=== PATIENT | female | born 1930 | race Caucasian/White ===

== ENCOUNTER 2018-05-10 14:56 | Observation (INO) | payer MEDICARE, BC ==
[~2018-05-10] VITALS: Ht 152.4 cm; Wt 68.9 kg
[2018-05-10 16:09] LABS: BASO # 0.1 x10^3/uL (0.0-0.2); BASO % 1 % (0-3); EOS # 0.1 x10^3/uL (0.0-0.7); EOS % 1 % (0-3); HEMATOCRIT 36.2 % (36.0-47.0); HEMOGLOBIN 12.3 g/dL (12.0-15.5); LYMPH # 3.7 x10^3/uL (1.0-4.8); LYMPH % 44 % (24-48); MEAN CORPUSCULAR HEMOGLOBIN 33 pg (25-35); MEAN CORPUSCULAR HGB CONC 34 g/dL (31-37); MEAN CORPUSCULAR VOLUME 96 fL (79-100); MONO # 0.9 x10^3/uL (0.0-1.1); MONO % 11 % (0-9); NEUT # 3.7 x10^3uL (1.8-7.7); NEUT % 44 % (31-73); PLATELET COUNT 273 x10^3/uL (140-400); RED BLOOD COUNT 3.76 x10^6/uL (3.50-5.40); RED CELL DISTRIBUTION WIDTH 13.1 % (11.5-14.5); WHITE BLOOD COUNT 8.5 x10^3/uL (4.0-11.0)
[2018-05-10 16:18] LABS: CALCIUM 9.4 mg/dL (8.5-10.1); CREATININE 0.9 mg/dL (0.6-1.0); GFR 59.1; POTASSIUM 4.2 mmol/L (3.5-5.1)
[2018-05-10 16:24] LABS: ALBUMIN 3.8 g/dL (3.4-5.0); ALBUMIN/GLOBULIN RATIO 1.2 (1.0-1.7); TOTAL BILIRUBIN 0.3 mg/dL (0.2-1.0); TOTAL PROTEIN 6.9 g/dL (6.4-8.2)
[2018-05-10] MEDS ORDERED: IV NORMAL SALINE 500ML BAG 500 ML IV ONE (16:30)
--- NOTE | 2018-05-10 16:46 | RAD ---
PQRS Compliance statement: One or more of the following individualized dose reduction techniques were utilized for this examination: 1. Automated exposure control. 2. Adjustment of the mA and/or kV according to patient size. 3. Use of iterative reconstruction technique. Indication:fall, laceration to posterior head TECHNIQUE: CT head without IV contrast COMPARISON:None FINDINGS: No pathologic extra-axial or intra-axial fluid collection. Mild diffuse cerebral atrophy. The ventricles and basal cisterns are within normal limits. Confluent low-attenuation is seen in the periventricular and deep white matter. No acute intracranial bleed. No focal loss of cruz-white differentiation. Orbits within normal limits. Multiple daren are seen in the left high convexity and lateral scalp. No large scalp hematoma. No acute calvarial fractures. The paranasal sinuses and mastoid air cells are clear. IMPRESSION: 1. No acute intracranial bleed. 2. Moderate White matter changes likely secondary to chronic microvascular ischemic disease. 3. Left anterior high convexity and lateral scalp soft tissue laceration with small hematoma without underlying calvarial fractures. Indication:fall, laceration to posterior head TECHNIQUE: CT of the cervical spine without IV contrast with multiplanar reformats. COMPARISON:None FINDINGS: Cervical spine is in normal anatomic alignment. Atlantoaxial joint interval is preserved. No compression deformities. The facet joints are in normal anatomic alignment with mild multilevel facet arthropathy. No acute fractures. Noncontrast appearance of the neck soft tissues within normal limits. Emphysema in the visualized lung apices. IMPRESSION: No acute cervical spine fractures. Electronically signed by: Chun Lau DO (05/10/2018 4:42 PM) [facility]
[2018-05-10] MEDS ORDERED: ONDANSETRON PF 4 MG/2 ML VIAL. IV PRN (17:15)
[2018-05-10] MEDS ORDERED: MAG HYDROX/ALUMINUM HYD/SIMETH 30 ML ORAL.SUSP PO PRN (17:15)
[2018-05-10] MEDS ORDERED: ACETAMINOPHEN 325 MG TABLET. PO PRN (17:15)
[2018-05-10] MEDS ORDERED: oxyCODONE IR 5 MG TABLET PO PRN (17:15)
[2018-05-10] MEDS ORDERED: IBUPROFEN 400 MG TABLET. PO PRN (17:15)
[2018-05-10] MEDS ORDERED: CALCIUM CARBONATE 500 MG TAB.CHEW PO PRN (17:15)
[2018-05-10] MEDS ORDERED: PROCHLORPERAZINE 10 MG/2 ML VIAL. IV PRN (17:15)
[2018-05-10] MEDS ORDERED: TEMAZEPAM 7.5 MG CAPSULE PO PRN (17:15)
[2018-05-10] MEDS ORDERED: MORPHINE SULFATE 4 MG/ML VIAL. IV PRN (17:15)
[2018-05-10 17:25] LABS: BILIRUBIN,URINE NEGATIVE (NEG); CLARITY,URINE CLEAR; COLOR,URINE YELLOW; NITRITE,URINE NEGATIVE (NEG); PROTEIN,URINE NEGATIVE (NEG-TRACE); UROBILINOGEN,URINE 0.2 mg/dL (0.2 mg/dL)
[2018-05-10] MEDS ORDERED: CLINDAMYCIN 600MG PREMIX 50 ML IV ONE (17:30)
[2018-05-10 17:39] LABS: RBC,URINE 0 /HPF (0-2)
[2018-05-10 17:40] LABS: BACTERIA,URINE FEW /HPF (0-FEW); SQUAMOUS EPITHELIAL CELL,UR MANY /LPF
--- NOTE | 2018-05-10 17:50 | PHYS DOC ---
Past Medical History Past Medical History: GERD, High Cholesterol, Hypertension Past Surgical History: Cholecystectomy, Hysterectomy, Tonsillectomy Alcohol Use: None Drug Use: None Adult General Chief Complaint Chief Complaint: MECHANICAL FALL HPI HPI Patient is a 88 year old female who was brought in after a mechanical fall apparently she fell down and tripped over a grocery cart. She says that she did not lose consciousness she recalls the event she lives alone no chest pain no anticoagulation no neck pain no shortness of breath no fever no recent illnesses just this injury. She was bleeding profusely from a large scalp laceration. She just recently moved her from [facility] she is with her son who is at the bedside. Review of Systems Review of Systems Constitutional: Denies fever or chills [] Eyes: Denies change in visual acuity, redness, or eye pain [] HENT: Denies nasal congestion or sore throat [] Respiratory: Denies cough or shortness of breath [] Cardiovascular: No additional information not addressed in HPI [] GI: Denies abdominal pain, nausea, vomiting, bloody stools or diarrhea [] : Denies dysuria or hematuria [] Musculoskeletal: Denies back pain or joint pain [] All other systems were reviewed and found to be within normal limits, except as documented in this note. Current Medications Current Medications Current Medications Medications (Trade) Dose Ordered Sig/Patricia Start Time Stop Time Status Last Admin Dose Admin Sodium Chloride 500 ml @ 500 mls/hr 1X ONCE 05/10/18 16:30 05/10/18 17:29 DC 05/10/18 16:30 500 MLS/HR Allergies Allergies Allergies Coded Allergies Type Severity Reaction Last Updated Verified Sulfa (Sulfonamide Antibiotics) Allergy Severe 05/10/18 Yes amoxicillin Allergy Intermediate Rash 05/10/18 Yes clavulanic acid Allergy Intermediate Rash 05/10/18 Yes meperidine Allergy Intermediate Unknown 05/10/18 Yes Physical Exam Physical Exam Constitutional: Well developed, HENT: Normocephalic, there was a large probably 15 cm laceration of the left anterior scalp deep to the galea some active bleeding is noted. No step-off is identified. There is also a 3 cm laceration to the anterior portion of the ear just anterior to the tragus. In addition there is also an obvious auricular hematoma. No significant bony tenderness of the face or neck. Eyes: PERRLA, EOMI, conjunctiva normal, no discharge. [] Neck: Normal range of motion, no tenderness, supple, no stridor. [] Cardiovascular:Heart rate regular rhythm, Lungs & Thorax: Bilateral breath sounds clear to auscultation [] Abdomen: Bowel sounds normal, soft, no tenderness, no masses, no pulsatile masses. [] Skin: ] Back: No tenderness, no CVA tenderness. [] Extremities: No tenderness, no cyanosis, no clubbing, ROM intact, no edema. [] Neurologic: Alert and oriented X 3, normal motor function, normal sensory function, no focal deficits noted. [] Psychologic: Affect normal, judgement normal, mood normal. [] Current Patient Data Vital Signs Vital Signs Date Time Temp Pulse Resp B/P (MAP) Pulse Ox O2 Delivery O2 Flow Rate FiO2 05/10/18 15:12 98.2 76 18 194/79 (117) 95 Room Air 98.2 Lab Values Laboratory Tests Test 05/10/18 16:00 White Blood Count 8.5 x10^3/uL (4.0-11.0) Red Blood Count 3.76 x10^6/uL (3.50-5.40) Hemoglobin 12.3 g/dL (12.0-15.5) Hematocrit 36.2 % (36.0-47.0) Mean Corpuscular Volume 96 fL (79-100) Mean Corpuscular Hemoglobin 33 pg (25-35) Mean Corpuscular Hemoglobin Concent 34 g/dL (31-37) Red Cell Distribution Width 13.1 % (11.5-14.5) Platelet Count 273 x10^3/uL (140-400) Neutrophils (%) (Auto) 44 % (31-73) Lymphocytes (%) (Auto) 44 % (24-48) Monocytes (%) (Auto) 11 % (0-9) H Eosinophils (%) (Auto) 1 % (0-3) Basophils (%) (Auto) 1 % (0-3) Neutrophils # (Auto) 3.7 x10^3uL (1.8-7.7) Lymphocytes # (Auto) 3.7 x10^3/uL (1.0-4.8) Monocytes # (Auto) 0.9 x10^3/uL (0.0-1.1) Eosinophils # (Auto) 0.1 x10^3/uL (0.0-0.7) Basophils # (Auto) 0.1 x10^3/uL (0.0-0.2) Sodium Level 135 mmol/L (136-145) L Potassium Level 4.2 mmol/L (3.5-5.1) Chloride Level 99 mmol/L (98-107) Carbon Dioxide Level 28 mmol/L (21-32) Anion Gap 8 (6-14) Blood Urea Nitrogen 18 mg/dL (7-20) Creatinine 0.9 mg/dL (0.6-1.0) Estimated GFR (Cockcroft-Gault) 59.1 BUN/Creatinine Ratio 20 (6-20) Glucose Level 162 mg/dL (70-99) H Calcium Level 9.4 mg/dL (8.5-10.1) Total Bilirubin 0.3 mg/dL (0.2-1.0) Aspartate Amino Transferase (AST) 19 U/L (15-37) Alanine Aminotransferase (ALT) 23 U/L (14-59) Alkaline Phosphatase 77 U/L (46-116) Troponin I Quantitative < 0.017 ng/mL (0.000-0.055) Total Protein 6.9 g/dL (6.4-8.2) Albumin 3.8 g/dL (3.4-5.0) Albumin/Globulin Ratio 1.2 (1.0-1.7) Laboratory Tests 05/10/18 16:00 Laboratory Tests 05/10/18 16:00 EKG EKG [] Interpretation Time: EKG shows a normal sinus rhythm rate of 93 probably sinus I see P waves A. fib would be on the differential but sinus with PVC seems more likely. No STEMI seen interpreted by me time of encounter Radiology/Procedures Radiology/Procedures [] Impressions: FINDINGS: No pathologic extra-axial or intra-axial fluid collection. Mild diffuse cerebral atrophy. The ventricles and basal cisterns are within normal limits. Confluent low-attenuation is seen in the periventricular and deep white matter. No acute intracranial bleed. No focal loss of cruz-white differentiation. Orbits within normal limits. Multiple daren are seen in the left high convexity and lateral scalp. No large scalp hematoma. No acute calvarial fractures. The paranasal sinuses and mastoid air cells are clear. IMPRESSION: 1. No acute intracranial bleed. 2. Moderate White matter changes likely secondary to chronic microvascular ischemic disease. 3. Left anterior high convexity and lateral scalp soft tissue laceration with small hematoma without underlying calvarial fractures. Indication:fall, laceration to posterior head TECHNIQUE: CT of the cervical spine without IV contrast with multiplanar reformats. COMPARISON:None FINDINGS: Cervical spine is in normal anatomic alignment. Atlantoaxial joint interval is preserved. No compression deformities. The facet joints are in normal anatomic alignment with mild multilevel facet arthropathy. No acute fractures. Noncontrast appearance of the neck soft tissues within normal limits. Emphysema in the visualized lung apices. IMPRESSION: No acute cervical spine fractures. Electronically signed by: Chun Lau DO (05/10/2018 4:42 PM) [facility] DICTATED and SIGNED BY: CHUN LAU DO DATE: 05/10/18 1635 Course & Med Decision Making Course & Med Decision Making Pertinent Labs and Imaging studies reviewed. (See chart for details) []88-year-old female after mechanical fall sustained a large scalp laceration and a reticular hematoma. She lives alone a 60 emergency room workup was negative acute. I think it was a mechanical fall but I think we should watch her overnight to make sure there is no further bleeding and that she does not hit her head again. Spoke with Dr. elvis CARMONA for admission. Laceration repair: Verbal consent obtained scalp laceration 15 cm wound was irrigated profusely no foreign body was identified lidocaine with EPI. TETANUS UP TO DATE. Closed with 17 daren with good skin approximation. Laceration repair #2: Verbal consent was obtained anterior ear laceration approximately 3 cm no foreign body was seen it was irrigated profusely lidocaine for anesthesia closed with 6-0 nylon simple interrupted sutures excellent skin approximation patient tolerated well. Incision and drainage: Verbal consent was obtained. Drainage or reticular hematoma the area was prepped and draped in the usual sterile fashion small amount of subcutaneous lidocaine was used a 0.5 cm incision was made just inferior to the cartilage of the superior portion of the hematoma a large amount of bright red blood was drained I made sure to re-create as best as possible the original anatomic shape of the cartilage and pinna. I then placed a pressure dressing including Xeroform anterior and posterior to the pinna followed by a pressure dressing around the whole head. I also instructed family and the patient and the importance of a follow-up examination for this AURICULAR hematoma it likely may need to be reevaluated AND/OR re-drained in the next 48 hours. They know to follow-up with an ENT doctor here in town and if not come back to the ER for reevaluation. Sutures and daren should be out, 5 days on the face in approximately 7-10 days on the scalp. Discussed with GRETTA ADMIT FOR OBSERVATION Prophylactic antibodies were given due to the size of the laceration. Dragon Disclaimer Dragon Disclaimer This electronic medical record was generated, in whole or in part, using a voice recognition dictation system. Departure Departure Impression: Primary Impression: Scalp laceration Disposition: ADMITTED INPATIENT Admitting Physician: Meg Milian Condition: STABLE Referrals: UNKNOWN PCP NAME (PCP) SUZETTE GRAVES MD May 10, 2018 17:50
[2018-05-10 18:00] VITALS: BP 187/99
[2018-05-10] MEDS ORDERED: AMLO5TAB7 PO (18:19)
[2018-05-10] MEDS ORDERED: OMEP20CA9 PO (18:19)
[2018-05-10] MEDS ORDERED: IRBE300T3 PO (18:19)
[2018-05-10] MEDS ORDERED: PRAV40TA2 PO (18:19)
[2018-05-10] MEDS ORDERED: METO-269 PO (18:19)
[2018-05-10] MEDS ORDERED: ANAS1TAB PO (18:19)
[2018-05-10 19:00] VITALS: BP 159/52
--- NOTE | 2018-05-10 19:39 | PDOC1 ---
History and Physical Date of Admission Date of Admission DATE: 05/10/18 TIME: 19:32 Identification/Chief Complaint Chief Complaint Fall at home and hit her head Source Source: Caregiver, Chart review, Patient History of Present Illness History of Present Illness 88-year-old female lives alone at home, son concern, had a mechanical fall today, no presyncopal symptoms. Sustained a pretty significant head laceration needed 18 daren in the emergency room and had some ear hematoma that was drained at the emergency room. CT head and cervical spine negative for any fracture just maybe some DJD. Blood pressure on the high side which was appropriately addressed. DNR. Patient looking fairly well, complains of some beginning headache. Otherwise, OBS admit and wants to go home tmr, She will see ENT MD on saturday to make sure ear hematoma will not re accumulate Past Medical History Cardiovascular: HTN Past Surgical History Past Surgical History: No pertinent history Family History Family History: Hypertension Social History Smoke: No ALCOHOL: none Drugs: None Current Medications Current Medications Current Medications Sodium Chloride 500 ml @ 500 mls/hr 1X ONCE IV Last administered on at 16:30; Start 05/10/18 at 16:30; Stop 05/10/18 at 17:29; Status DC Ondansetron HCl (Zofran) 4 mg PRN Q6HRS PRN IV NAUSEA/VOMITING; Start at 17:15 Prochlorperazine Edisylate (Compazine) 10 mg PRN Q6HRS PRN IV NAUSEA/VOMITING 2ND CHOICE; Start 05/10/18 at 17:15 Al Hydroxide/Mg Hydroxide (Mylanta Plus Xs) 30 ml PRN Q3HRS PRN PO HEARTBURN / GAS; Start 05/10/18 at 17:15 Calcium Carbonate/ Glycine (Tums) 500 mg PRN Q3HRS PRN PO UPSET STOMACH; Start 05/10/18 at 17:15 Morphine Sulfate (Morphine Sulfate) 1 mg PRN Q1HR PRN IV PAIN; Start 05/10/18 at 17:15 Oxycodone HCl (Roxicodone) 5 mg PRN Q4HRS PRN PO MODERATE-SEVERE PAIN; Start 05/10/18 at 17:15 Acetaminophen (Tylenol) 650 mg PRN Q6HRS PRN PO Headaches, Temp > 101.5F; Start 05/10/18 at 17:15 Ibuprofen (Motrin) 400 mg PRN Q6HRS PRN PO MILD PAIN; Start 05/10/18 at 17:15 Temazepam (Restoril) 7.5 mg PRN QHS PRN PO INSOMNIA; Start 05/10/18 at 17:15 Clindamycin Phosphate 50 ml @ 100 mls/hr Q8HRS IV ; Start 05/11/18 at 00:00 Clindamycin Phosphate 50 ml @ 100 mls/hr 1X ONCE IV Last administered on at 17:48; Start 05/10/18 at 17:30; Stop 05/10/18 at 17:59; Status DC Amlodipine Besylate (Norvasc) 5 mg DAILY PO ; Start 05/11/18 at 09:00 Anastrozole (Arimidex) 1 mg DAILY PO ; Start 05/11/18 at 09:00 Losartan Potassium (Cozaar) 100 mg DAILY PO ; Start 05/11/18 at 09:00 Metoprolol Succinate (Toprol Xl) 50 mg DAILY PO ; Start 05/11/18 at 09:00 Pantoprazole Sodium (Protonix) 40 mg DAILYAC PO ; Start 05/11/18 at 07:30 Atorvastatin Calcium (Lipitor) 10 mg QHS PO ; Start 05/10/18 at 21:00 Active Scripts Active Reported Amlodipine Besylate 5 Mg Tablet 5 Mg PO DAILY Irbesartan 300 Mg Tablet 1 Tab PO DAILY Toprol Xl (Metoprolol Succinate) 50 Mg Tab.er.24h 50 Mg PO DAILY Pravastatin Sodium 40 Mg Tablet 1 Tab PO DAILY Omeprazole 20 Mg Capsule.dr 1 Cap PO DAILY Anastrozole 1 Mg Tablet 1 Tab PO DAILY Allergies Allergies: Coded Allergies: Sulfa (Sulfonamide Antibiotics) (Verified Allergy, Severe, 05/10/18) "I WENT CRAZY" amoxicillin (Verified Allergy, Intermediate, Rash, 05/10/18) clavulanic acid (Verified Allergy, Intermediate, Rash, 05/10/18) meperidine (Verified Allergy, Unknown, Unknown, 05/10/18) ROS Review of System Beginning headache, otherwise rest of ROS 14 point negative Physical Exam General: Alert, Oriented X3, Cooperative, No acute distress HEENT: PERRLA, EOMI, Other (she has 18 daren, head bandage which is dry) Lungs: Clear to auscultation, Normal air movement Heart: S1S2, RRR, no thrills, no rubs, no gallops, no murmurs Cardiovascular: S1, S2 Breasts: Normal, Rt breast nml w/o mass, Lt breast nml w/o mass, Nipples normal Abdomen: Normal bowel sounds, Soft, No tenderness, No hepatosplenomegaly, No masses Rectal Exam: not examined PELVIC: Nml ext genitalia Extremities: No clubbing, No cyanosis, No edema, Normal pulses, No tenderness/ swelling Skin: No rashes, No breakdown, No significant lesion Neuro: Normal gait, Normal speech, Strength at 5/5 X4 ext, Normal tone, Sensation intact, Cranial nerves 3-12 NL, Reflexes 2+ Psych/Mental Status: Mental status NL, Mood NL Vitals Vitals Vital Signs Date Time Temp Pulse Resp B/P (MAP) Pulse Ox O2 Delivery O2 Flow Rate FiO2 05/10/18 18:00 97.9 88 20 187/99 (128) 95 Room Air 97.9 Labs Labs Laboratory Tests Test 05/10/18 16:00 05/10/18 17:17 White Blood Count 8.5 x10^3/uL (4.0-11.0) Red Blood Count 3.76 x10^6/uL (3.50-5.40) Hemoglobin 12.3 g/dL (12.0-15.5) Hematocrit 36.2 % (36.0-47.0) Mean Corpuscular Volume 96 fL (79-100) Mean Corpuscular Hemoglobin 33 pg (25-35) Mean Corpuscular Hemoglobin Concent 34 g/dL (31-37) Red Cell Distribution Width 13.1 % (11.5-14.5) Platelet Count 273 x10^3/uL (140-400) Neutrophils (%) (Auto) 44 % (31-73) Lymphocytes (%) (Auto) 44 % (24-48) Monocytes (%) (Auto) 11 % (0-9) Eosinophils (%) (Auto) 1 % (0-3) Basophils (%) (Auto) 1 % (0-3) Neutrophils # (Auto) 3.7 x10^3uL (1.8-7.7) Lymphocytes # (Auto) 3.7 x10^3/uL (1.0-4.8) Monocytes # (Auto) 0.9 x10^3/uL (0.0-1.1) Eosinophils # (Auto) 0.1 x10^3/uL (0.0-0.7) Basophils # (Auto) 0.1 x10^3/uL (0.0-0.2) Sodium Level 135 mmol/L (136-145) Potassium Level 4.2 mmol/L (3.5-5.1) Chloride Level 99 mmol/L (98-107) Carbon Dioxide Level 28 mmol/L (21-32) Anion Gap 8 (6-14) Blood Urea Nitrogen 18 mg/dL (7-20) Creatinine 0.9 mg/dL (0.6-1.0) Estimated GFR (Cockcroft-Gault) 59.1 BUN/Creatinine Ratio 20 (6-20) Glucose Level 162 mg/dL (70-99) Calcium Level 9.4 mg/dL (8.5-10.1) Total Bilirubin 0.3 mg/dL (0.2-1.0) Aspartate Amino Transf (AST/SGOT) 19 U/L (15-37) Alanine Aminotransferase (ALT/SGPT) 23 U/L (14-59) Alkaline Phosphatase 77 U/L (46-116) Troponin I Quantitative < 0.017 ng/mL (0.000-0.055) Total Protein 6.9 g/dL (6.4-8.2) Albumin 3.8 g/dL (3.4-5.0) Albumin/Globulin Ratio 1.2 (1.0-1.7) Urine Collection Type Unknown Urine Color Yellow Urine Clarity Clear Urine pH 6.0 Urine Specific [place] 1.015 Urine Protein Negative mg/dL (NEG-TRACE) Urine Glucose (UA) Negative mg/dL (NEG) Urine Ketones (Stick) Negative mg/dL (NEG) Urine Blood Negative (NEG) Urine Nitrite Negative (NEG) Urine Bilirubin Negative (NEG) Urine Urobilinogen Dipstick 0.2 mg/dL (0.2 mg/dL) Urine Leukocyte Esterase Moderate (NEG) Urine RBC 0 /HPF (0-2) Urine WBC 5-10 /HPF (0-4) Urine Squamous Epithelial Cells Many /LPF Urine Renal Epithelial Cells Few /LPF Urine Bacteria Few /HPF (0-FEW) Urine Mucus Marked /LPF Laboratory Tests Test 12/15/18 16:00 05/10/18 17:17 White Blood Count 8.5 x10^3/uL (4.0-11.0) Red Blood Count 3.76 x10^6/uL (3.50-5.40) Hemoglobin 12.3 g/dL (12.0-15.5) Hematocrit 36.2 % (36.0-47.0) Mean Corpuscular Volume 96 fL (79-100) Mean Corpuscular Hemoglobin 33 pg (25-35) Mean Corpuscular Hemoglobin Concent 34 g/dL (31-37) Red Cell Distribution Width 13.1 % (11.5-14.5) Platelet Count 273 x10^3/uL (140-400) Neutrophils (%) (Auto) 44 % (31-73) Lymphocytes (%) (Auto) 44 % (24-48) Monocytes (%) (Auto) 11 % (0-9) Eosinophils (%) (Auto) 1 % (0-3) Basophils (%) (Auto) 1 % (0-3) Neutrophils # (Auto) 3.7 x10^3uL (1.8-7.7) Lymphocytes # (Auto) 3.7 x10^3/uL (1.0-4.8) Monocytes # (Auto) 0.9 x10^3/uL (0.0-1.1) Eosinophils # (Auto) 0.1 x10^3/uL (0.0-0.7) Basophils # (Auto) 0.1 x10^3/uL (0.0-0.2) Sodium Level 135 mmol/L (136-145) Potassium Level 4.2 mmol/L (3.5-5.1) Chloride Level 99 mmol/L (98-107) Carbon Dioxide Level 28 mmol/L (21-32) Anion Gap 8 (6-14) Blood Urea Nitrogen 18 mg/dL (7-20) Creatinine 0.9 mg/dL (0.6-1.0) Estimated GFR (Cockcroft-Gault) 59.1 BUN/Creatinine Ratio 20 (6-20) Glucose Level 162 mg/dL (70-99) Calcium Level 9.4 mg/dL (8.5-10.1) Total Bilirubin 0.3 mg/dL (0.2-1.0) Aspartate Amino Transf (AST/SGOT) 19 U/L (15-37) Alanine Aminotransferase (ALT/SGPT) 23 U/L (14-59) Alkaline Phosphatase 77 U/L (46-116) Troponin I Quantitative < 0.017 ng/mL (0.000-0.055) Total Protein 6.9 g/dL (6.4-8.2) Albumin 3.8 g/dL (3.4-5.0) Albumin/Globulin Ratio 1.2 (1.0-1.7) Urine Collection Type Unknown Urine Color Yellow Urine Clarity Clear Urine pH 6.0 Urine Specific [place] 1.015 Urine Protein Negative mg/dL (NEG-TRACE) Urine Glucose (UA) Negative mg/dL (NEG) Urine Ketones (Stick) Negative mg/dL (NEG) Urine Blood Negative (NEG) Urine Nitrite Negative (NEG) Urine Bilirubin Negative (NEG) Urine Urobilinogen Dipstick 0.2 mg/dL (0.2 mg/dL) Urine Leukocyte Esterase Moderate (NEG) Urine RBC 0 /HPF (0-2) Urine WBC 5-10 /HPF (0-4) Urine Squamous Epithelial Cells Many /LPF Urine Renal Epithelial Cells Few /LPF Urine Bacteria Few /HPF (0-FEW) Urine Mucus Marked /LPF VTE Prophylaxis Ordered VTE Prophylaxis Devices: Yes VTE Pharmacological Prophylaxi: Yes Assessment/Plan Assessment/Plan Closed head injury Mechanical fall at home Scalp laceration, status post 18 sutures at the emergency room ear hematoma status post evacuation at the ER Geriatric DNR Fall risk PLAn: Observation status I have reconciled home meds, she would wish some [employer] or Lortab for the headache to help her sleep tonight Blood pressure meds have been reconciled and when necessary Pain control To see an ENT doctor Saturday to make sure air hematoma does not resolve Conesus can be removed in about 10-14 days? As per ER ERIK GLYNN MD May 10, 2018 19:38
--- NOTE | 2018-05-10 19:43 | EKG ---
[facility] [address] [place] [address] Test Date: 2018-05-10 Test Time: 16:07:11 Pat Name: PVAEL BOOKER Department: Room: 406 1 Gender: F [employer] Director: : 1930 Requested By: SUZETTE GRAVES Order Number: [id number] Reading MD: Eugenio Berkowitz MD Measurements Intervals [place] Rate: 93 P: 90 [place]: 230 QRS: 34 QRSD: 74 T: 28 QT: 380 QTc: 475 Interpretive Statements SINUS RHYTHM - PROBABLE VENTRICULAR PREMATURE COMPLEX(ES) ATRIAL PREMATURE COMPLEX(ES) PROLONGED [place] INTERVAL PROLONGED QT ABNORMAL ECG BASELINE ARTIFACT Electronically Signed On 05-12-2018 10:30:53 STAVE GRADER by Eugenio Berkowitz MD
[2018-05-10] MEDS ORDERED: HYDROcodone/APAP 5/325MG 1 TAB TABLET PO ONE (19:45)
[2018-05-10] MEDS ORDERED: HYDROcodone/APAP 5/325MG 1 TAB TABLET PO PRN (19:45)
[2018-05-10] MEDS ORDERED: ATORVASTATIN CALCIUM 10 MG TABLET. PO SCH (21:00)
[2018-05-10 22:58] VITALS: BP 148/53
[2018-05-10] MEDS: CLINDAMYCIN 600MG PREMIX 50 ML IV SCH (23:28)
[2018-05-11 03:00] VITALS: BP 158/55
[2018-05-11] MEDS: CLINDAMYCIN 600MG PREMIX 50 ML IV SCH ×2 (05:49→14:00)
[2018-05-11 07:00] VITALS: BP 150/40
[2018-05-11] MEDS ORDERED: PANTOPRAZOLE 40 MG TABLET.DR. PO SCH (07:30)
[2018-05-11] MEDS ORDERED: METOPROLOL SUCC 24HR ER 50 MG TAB.ER.24H. PO SCH (09:00)
[2018-05-11] MEDS ORDERED: LOSARTAN POTASSIUM 50 MG TABLET. PO SCH (09:00)
[2018-05-11] MEDS ORDERED: ANASTROZOLE 1 MG TABLET PO SCH (09:00)
[2018-05-11] MEDS ORDERED: amLODIPine BESYLATE 5 MG TABLET PO SCH (09:00)
--- NOTE | 2018-05-11 09:54 | PDOC ---
PROGRESS NOTES Chief Complaint Chief Complaint Closed head injury Mechanical fall at home Scalp laceration, status post 18 verito at the emergency room ear hematoma status post evacuation at the ER and posterior otic sutures Geriatric DNR Fall risk History of Present Illness History of Present Illness 88-year-old female lives alone at home, son concern, had a mechanical fall today, no presyncopal symptoms. Sustained a pretty significant head laceration needed 18 verito in the emergency room and had some ear hematoma that was drained at the emergency room. CT head and cervical spine negative for any fracture just maybe some DJD. Blood pressure on the high side which was appropriately addressed. DNR. No Overnight events. Patient looking fairly well, complains of some headache. Was OBS admit and wants to go home, She will see ENT MD on saturday to make sure ear hematoma will not re accumulate. Awaiting final PT evaluation CT head 1. No acute intracranial bleed. 2. Moderate White matter changes likely secondary to chronic microvascular ischemic disease. 3. Left anterior high convexity and lateral scalp soft tissue laceration with small hematoma without underlying calvarial fractures. Plan: Observation status Blood pressure meds have been reconciled and when necessary. Hold amlodipine and BRUNO, BB only today Pain control To see an ENT doctor Saturday to make sure air hematoma does not resolve Verito can be removed in about 10-14 days Awaiting final PT/OT evaluation Vitals Vitals Vital Signs Date Time Temp Pulse Resp B/P (MAP) Pulse Ox O2 Delivery O2 Flow Rate FiO2 05/11/18 07:00 97.7 75 18 150/40 (76) 91 Room Air 97.7 Physical Exam General: Alert, Oriented X3, Cooperative, No acute distress Abdomen: Normal bowel sounds, Soft, No tenderness, No hepatosplenomegaly, No masses Extremities: No clubbing, No cyanosis, No edema, Normal pulses, No tenderness/ swelling Skin: No rashes, No breakdown, No significant lesion Labs LABS Laboratory Tests Test 05/10/18 16:00 05/10/18 17:17 White Blood Count 8.5 x10^3/uL (4.0-11.0) Red Blood Count 3.76 x10^6/uL (3.50-5.40) Hemoglobin 12.3 g/dL (12.0-15.5) Hematocrit 36.2 % (36.0-47.0) Mean Corpuscular Volume 96 fL (79-100) Mean Corpuscular Hemoglobin 33 pg (25-35) Mean Corpuscular Hemoglobin Concent 34 g/dL (31-37) Red Cell Distribution Width 13.1 % (11.5-14.5) Platelet Count 273 x10^3/uL (140-400) Neutrophils (%) (Auto) 44 % (31-73) Lymphocytes (%) (Auto) 44 % (24-48) Monocytes (%) (Auto) 11 % (0-9) Eosinophils (%) (Auto) 1 % (0-3) Basophils (%) (Auto) 1 % (0-3) Neutrophils # (Auto) 3.7 x10^3uL (1.8-7.7) Lymphocytes # (Auto) 3.7 x10^3/uL (1.0-4.8) Monocytes # (Auto) 0.9 x10^3/uL (0.0-1.1) Eosinophils # (Auto) 0.1 x10^3/uL (0.0-0.7) Basophils # (Auto) 0.1 x10^3/uL (0.0-0.2) Sodium Level 135 mmol/L (136-145) Potassium Level 4.2 mmol/L (3.5-5.1) Chloride Level 99 mmol/L (98-107) Carbon Dioxide Level 28 mmol/L (21-32) Anion Gap 8 (6-14) Blood Urea Nitrogen 18 mg/dL (7-20) Creatinine 0.9 mg/dL (0.6-1.0) Estimated GFR (Cockcroft-Gault) 59.1 BUN/Creatinine Ratio 20 (6-20) Glucose Level 162 mg/dL (70-99) Calcium Level 9.4 mg/dL (8.5-10.1) Total Bilirubin 0.3 mg/dL (0.2-1.0) Aspartate Amino Transf (AST/SGOT) 19 U/L (15-37) Alanine Aminotransferase (ALT/SGPT) 23 U/L (14-59) Alkaline Phosphatase 77 U/L (46-116) Troponin I Quantitative < 0.017 ng/mL (0.000-0.055) Total Protein 6.9 g/dL (6.4-8.2) Albumin 3.8 g/dL (3.4-5.0) Albumin/Globulin Ratio 1.2 (1.0-1.7) Urine Collection Type Unknown Urine Color Yellow Urine Clarity Clear Urine pH 6.0 Urine Specific [place] 1.015 Urine Protein Negative mg/dL (NEG-TRACE) Urine Glucose (UA) Negative mg/dL (NEG) Urine Ketones (Stick) Negative mg/dL (NEG) Urine Blood Negative (NEG) Urine Nitrite Negative (NEG) Urine Bilirubin Negative (NEG) Urine Urobilinogen Dipstick 0.2 mg/dL (0.2 mg/dL) Urine Leukocyte Esterase Moderate (NEG) Urine RBC 0 /HPF (0-2) Urine WBC 5-10 /HPF (0-4) Urine Squamous Epithelial Cells Many /LPF Urine Renal Epithelial Cells Few /LPF Urine Bacteria Few /HPF (0-FEW) Urine Mucus Marked /LPF Comment Review of Relevant I have reviewed the following items meliton (where applicable) has been applied. Labs Laboratory Tests Test 05/10/18 16:00 05/10/18 17:17 White Blood Count 8.5 x10^3/uL (4.0-11.0) Red Blood Count 3.76 x10^6/uL (3.50-5.40) Hemoglobin 12.3 g/dL (12.0-15.5) Hematocrit 36.2 % (36.0-47.0) Mean Corpuscular Volume 96 fL (79-100) Mean Corpuscular Hemoglobin 33 pg (25-35) Mean Corpuscular Hemoglobin Concent 34 g/dL (31-37) Red Cell Distribution Width 13.1 % (11.5-14.5) Platelet Count 273 x10^3/uL (140-400) Neutrophils (%) (Auto) 44 % (31-73) Lymphocytes (%) (Auto) 44 % (24-48) Monocytes (%) (Auto) 11 % (0-9) Eosinophils (%) (Auto) 1 % (0-3) Basophils (%) (Auto) 1 % (0-3) Neutrophils # (Auto) 3.7 x10^3uL (1.8-7.7) Lymphocytes # (Auto) 3.7 x10^3/uL (1.0-4.8) Monocytes # (Auto) 0.9 x10^3/uL (0.0-1.1) Eosinophils # (Auto) 0.1 x10^3/uL (0.0-0.7) Basophils # (Auto) 0.1 x10^3/uL (0.0-0.2) Sodium Level 135 mmol/L (136-145) Potassium Level 4.2 mmol/L (3.5-5.1) Chloride Level 99 mmol/L (98-107) Carbon Dioxide Level 28 mmol/L (21-32) Anion Gap 8 (6-14) Blood Urea Nitrogen 18 mg/dL (7-20) Creatinine 0.9 mg/dL (0.6-1.0) Estimated GFR (Cockcroft-Gault) 59.1 BUN/Creatinine Ratio 20 (6-20) Glucose Level 162 mg/dL (70-99) Calcium Level 9.4 mg/dL (8.5-10.1) Total Bilirubin 0.3 mg/dL (0.2-1.0) Aspartate Amino Transf (AST/SGOT) 19 U/L (15-37) Alanine Aminotransferase (ALT/SGPT) 23 U/L (14-59) Alkaline Phosphatase 77 U/L (46-116) Troponin I Quantitative < 0.017 ng/mL (0.000-0.055) Total Protein 6.9 g/dL (6.4-8.2) Albumin 3.8 g/dL (3.4-5.0) Albumin/Globulin Ratio 1.2 (1.0-1.7) Urine Collection Type Unknown Urine Color Yellow Urine Clarity Clear Urine pH 6.0 Urine Specific [place] 1.015 Urine Protein Negative mg/dL (NEG-TRACE) Urine Glucose (UA) Negative mg/dL (NEG) Urine Ketones (Stick) Negative mg/dL (NEG) Urine Blood Negative (NEG) Urine Nitrite Negative (NEG) Urine Bilirubin Negative (NEG) Urine Urobilinogen Dipstick 0.2 mg/dL (0.2 mg/dL) Urine Leukocyte Esterase Moderate (NEG) Urine RBC 0 /HPF (0-2) Urine WBC 5-10 /HPF (0-4) Urine Squamous Epithelial Cells Many /LPF Urine Renal Epithelial Cells Few /LPF Urine Bacteria Few /HPF (0-FEW) Urine Mucus Marked /LPF Laboratory Tests Test 05/10/18 16:00 05/10/18 17:17 White Blood Count 8.5 x10^3/uL (4.0-11.0) Red Blood Count 3.76 x10^6/uL (3.50-5.40) Hemoglobin 12.3 g/dL (12.0-15.5) Hematocrit 36.2 % (36.0-47.0) Mean Corpuscular Volume 96 fL (79-100) Mean Corpuscular Hemoglobin 33 pg (25-35) Mean Corpuscular Hemoglobin Concent 34 g/dL (31-37) Red Cell Distribution Width 13.1 % (11.5-14.5) Platelet Count 273 x10^3/uL (140-400) Neutrophils (%) (Auto) 44 % (31-73) Lymphocytes (%) (Auto) 44 % (24-48) Monocytes (%) (Auto) 11 % (0-9) Eosinophils (%) (Auto) 1 % (0-3) Basophils (%) (Auto) 1 % (0-3) Neutrophils # (Auto) 3.7 x10^3uL (1.8-7.7) Lymphocytes # (Auto) 3.7 x10^3/uL (1.0-4.8) Monocytes # (Auto) 0.9 x10^3/uL (0.0-1.1) Eosinophils # (Auto) 0.1 x10^3/uL (0.0-0.7) Basophils # (Auto) 0.1 x10^3/uL (0.0-0.2) Sodium Level 135 mmol/L (136-145) Potassium Level 4.2 mmol/L (3.5-5.1) Chloride Level 99 mmol/L (98-107) Carbon Dioxide Level 28 mmol/L (21-32) Anion Gap 8 (6-14) Blood Urea Nitrogen 18 mg/dL (7-20) Creatinine 0.9 mg/dL (0.6-1.0) Estimated GFR (Cockcroft-Gault) 59.1 BUN/Creatinine Ratio 20 (6-20) Glucose Level 162 mg/dL (70-99) Calcium Level 9.4 mg/dL (8.5-10.1) Total Bilirubin 0.3 mg/dL (0.2-1.0) Aspartate Amino Transf (AST/SGOT) 19 U/L (15-37) Alanine Aminotransferase (ALT/SGPT) 23 U/L (14-59) Alkaline Phosphatase 77 U/L (46-116) Troponin I Quantitative < 0.017 ng/mL (0.000-0.055) Total Protein 6.9 g/dL (6.4-8.2) Albumin 3.8 g/dL (3.4-5.0) Albumin/Globulin Ratio 1.2 (1.0-1.7) Urine Collection Type Unknown Urine Color Yellow Urine Clarity Clear Urine pH 6.0 Urine Specific [place] 1.015 Urine Protein Negative mg/dL (NEG-TRACE) Urine Glucose (UA) Negative mg/dL (NEG) Urine Ketones (Stick) Negative mg/dL (NEG) Urine Blood Negative (NEG) Urine Nitrite Negative (NEG) Urine Bilirubin Negative (NEG) Urine Urobilinogen Dipstick 0.2 mg/dL (0.2 mg/dL) Urine Leukocyte Esterase Moderate (NEG) Urine RBC 0 /HPF (0-2) Urine WBC 5-10 /HPF (0-4) Urine Squamous Epithelial Cells Many /LPF Urine Renal Epithelial Cells Few /LPF Urine Bacteria Few /HPF (0-FEW) Urine Mucus Marked /LPF Medications Current Medications Sodium Chloride 500 ml @ 500 mls/hr 1X ONCE IV Last administered on at 16:30; Start 05/10/18 at 16:30; Stop 05/10/18 at 17:29; Status DC Ondansetron HCl (Zofran) 4 mg PRN Q6HRS PRN IV NAUSEA/VOMITING Last administered on 05/10/18at 21:00; Start 05/10/18 at 17:15 Prochlorperazine Edisylate (Compazine) 10 mg PRN Q6HRS PRN IV NAUSEA/VOMITING 2ND CHOICE; Start 05/10/18 at 17:15 Al Hydroxide/Mg Hydroxide (Mylanta Plus Xs) 30 ml PRN Q3HRS PRN PO HEARTBURN / GAS; Start 05/10/18 at 17:15 Calcium Carbonate/ Glycine (Tums) 500 mg PRN Q3HRS PRN PO UPSET STOMACH; Start 05/10/18 at 17:15 Morphine Sulfate (Morphine Sulfate) 1 mg PRN Q1HR PRN IV PAIN; Start 05/10/18 at 17:15 Oxycodone HCl (Roxicodone) 5 mg PRN Q4HRS PRN PO MODERATE-SEVERE PAIN; Start 05/10/18 at 17:15; Stop 05/10/18 at 19:36; Status DC Acetaminophen (Tylenol) 650 mg PRN Q6HRS PRN PO Headaches, Temp > 101.5F; Start 05/10/18 at 17:15 Ibuprofen (Motrin) 400 mg PRN Q6HRS PRN PO MILD PAIN; Start 05/10/18 at 17:15 Temazepam (Restoril) 7.5 mg PRN QHS PRN PO INSOMNIA; Start 05/10/18 at 17:15 Clindamycin Phosphate 50 ml @ 100 mls/hr Q8HRS IV Last administered on at 05:49; Start 05/11/18 at 00:00 Clindamycin Phosphate 50 ml @ 100 mls/hr 1X ONCE IV Last administered on at 17:48; Start 05/10/18 at 17:30; Stop 05/10/18 at 17:59; Status DC Amlodipine Besylate (Norvasc) 5 mg DAILY PO ; Start 05/11/18 at 09:00 Anastrozole (Arimidex) 1 mg DAILY PO ; Start 05/11/18 at 09:00 Losartan Potassium (Cozaar) 100 mg DAILY PO ; Start 05/11/18 at 09:00 Metoprolol Succinate (Toprol Xl) 50 mg DAILY PO ; Start 05/11/18 at 09:00 Pantoprazole Sodium (Protonix) 40 mg DAILYAC PO ; Start 05/11/18 at 07:30 Atorvastatin Calcium (Lipitor) 10 mg QHS PO Last administered on 05/10/18at 19: 46; Start 05/10/18 at 21:00 Acetaminophen/ Hydrocodone Bitart (Lortab 5/325) 1 tab PRN Q4HRS PRN PO MODERATE-SEVERE PAIN; Start 05/10/18 at 19:45 Acetaminophen/ Hydrocodone Bitart (Lortab 5/325) 1 tab 1X ONCE PO Last administered on 05/10/18at 19:47; Start 05/10/18 at 19:45; Stop 05/10/18 at 19 :46; Status DC Active Scripts Active Reported Amlodipine Besylate 5 Mg Tablet 5 Mg PO DAILY Irbesartan 300 Mg Tablet 1 Tab PO DAILY Toprol Xl (Metoprolol Succinate) 50 Mg Tab.er.24h 50 Mg PO DAILY Pravastatin Sodium 40 Mg Tablet 1 Tab PO DAILY Omeprazole 20 Mg Capsule.dr 1 Cap PO DAILY Anastrozole 1 Mg Tablet 1 Tab PO DAILY Vitals/I & O Vital Sign - Last 24 Hours 05/10/18 05/10/18 05/10/18 05/10/18 15:12 15:30 16:30 17:30 Temp 98.2 98.2 Pulse 76 82 82 86 Resp 18 B/P (MAP) 194/79 (117) Pulse Ox 95 94 94 94 O2 Delivery Room Air 05/10/18 05/10/18 05/10/18 05/10/18 18:00 19:00 19:47 20:00 Temp 97.9 97.9 97.9 97.9 Pulse 88 84 Resp 20 18 18 B/P (MAP) 187/99 (128) 159/52 (87) Pulse Ox 95 94 94 O2 Delivery Room Air Room Air Room Air Room Air 05/10/18 05/10/18 05/11/18 05/11/18 20:47 22:58 03:00 07:00 Temp 97.9 98.0 97.7 97.9 98.0 97.7 Pulse 79 82 75 Resp 18 18 B/P (MAP) 148/53 (84) 158/55 (89) 150/40 (76) Pulse Ox 94 94 93 91 O2 Delivery Room Air Room Air Room Air Room Air Intake and Output 05/10/18 05/10/18 05/11/18 15:00 23:00 07:00 Intake Total 700 ml 400 ml Balance 700 ml 400 ml MANISH GARCIA MD May 11, 2018 09:54
[2018-05-11 11:00] VITALS: BP_SYST 130; BP_SYST 156; BP_DIAS 53; BP_DIAS 77
[2018-05-11] MEDS ORDERED: TRAM50TA PO (14:03)
[2018-05-11] MEDS ORDERED: CLIN300C8 PO (14:03)
--- NOTE | 2018-05-11 14:03 | PDOC3 ---
Discharge Summary Visit Information Date of Admission: May 10, 2018 Date of Discharge: May 11, 2018 Admitting Diagnosis: Fall at home Final Diagnosis Scalp laceration Brief Hospital Course Allergies Allergies Coded Allergies Type Severity Reaction Last Updated Verified Sulfa (Sulfonamide Antibiotics) Allergy Severe 05/10/18 Yes amoxicillin Allergy Intermediate Rash 05/10/18 Yes clavulanic acid Allergy Intermediate Rash 05/10/18 Yes meperidine Allergy Unknown Unknown 05/10/18 Yes Vital Signs Vital Signs Date Time Temp Pulse Resp B/P (MAP) Pulse Ox O2 Delivery O2 Flow Rate FiO2 05/11/18 11:00 97.9 81 18 156/77 (103) 97 Room Air 97.9 Lab Results Laboratory Tests Test 05/10/18 16:00 05/10/18 17:17 White Blood Count 8.5 x10^3/uL (4.0-11.0) Red Blood Count 3.76 x10^6/uL (3.50-5.40) Hemoglobin 12.3 g/dL (12.0-15.5) Hematocrit 36.2 % (36.0-47.0) Mean Corpuscular Volume 96 fL (79-100) Mean Corpuscular Hemoglobin 33 pg (25-35) Mean Corpuscular Hemoglobin Concent 34 g/dL (31-37) Red Cell Distribution Width 13.1 % (11.5-14.5) Platelet Count 273 x10^3/uL (140-400) Neutrophils (%) (Auto) 44 % (31-73) Lymphocytes (%) (Auto) 44 % (24-48) Monocytes (%) (Auto) 11 % (0-9) Eosinophils (%) (Auto) 1 % (0-3) Basophils (%) (Auto) 1 % (0-3) Neutrophils # (Auto) 3.7 x10^3uL (1.8-7.7) Lymphocytes # (Auto) 3.7 x10^3/uL (1.0-4.8) Monocytes # (Auto) 0.9 x10^3/uL (0.0-1.1) Eosinophils # (Auto) 0.1 x10^3/uL (0.0-0.7) Basophils # (Auto) 0.1 x10^3/uL (0.0-0.2) Sodium Level 135 mmol/L (136-145) Potassium Level 4.2 mmol/L (3.5-5.1) Chloride Level 99 mmol/L (98-107) Carbon Dioxide Level 28 mmol/L (21-32) Anion Gap 8 (6-14) Blood Urea Nitrogen 18 mg/dL (7-20) Creatinine 0.9 mg/dL (0.6-1.0) Estimated GFR (Cockcroft-Gault) 59.1 BUN/Creatinine Ratio 20 (6-20) Glucose Level 162 mg/dL (70-99) Calcium Level 9.4 mg/dL (8.5-10.1) Total Bilirubin 0.3 mg/dL (0.2-1.0) Aspartate Amino Transf (AST/SGOT) 19 U/L (15-37) Alanine Aminotransferase (ALT/SGPT) 23 U/L (14-59) Alkaline Phosphatase 77 U/L (46-116) Troponin I Quantitative < 0.017 ng/mL (0.000-0.055) Total Protein 6.9 g/dL (6.4-8.2) Albumin 3.8 g/dL (3.4-5.0) Albumin/Globulin Ratio 1.2 (1.0-1.7) Urine Collection Type Unknown Urine Color Yellow Urine Clarity Clear Urine pH 6.0 Urine Specific [place] 1.015 Urine Protein Negative mg/dL (NEG-TRACE) Urine Glucose (UA) Negative mg/dL (NEG) Urine Ketones (Stick) Negative mg/dL (NEG) Urine Blood Negative (NEG) Urine Nitrite Negative (NEG) Urine Bilirubin Negative (NEG) Urine Urobilinogen Dipstick 0.2 mg/dL (0.2 mg/dL) Urine Leukocyte Esterase Moderate (NEG) Urine RBC 0 /HPF (0-2) Urine WBC 5-10 /HPF (0-4) Urine Squamous Epithelial Cells Many /LPF Urine Renal Epithelial Cells Few /LPF Urine Bacteria Few /HPF (0-FEW) Urine Mucus Marked /LPF Laboratory Tests Test 05/10/18 16:00 05/10/18 17:17 White Blood Count 8.5 x10^3/uL (4.0-11.0) Red Blood Count 3.76 x10^6/uL (3.50-5.40) Hemoglobin 12.3 g/dL (12.0-15.5) Hematocrit 36.2 % (36.0-47.0) Mean Corpuscular Volume 96 fL (79-100) Mean Corpuscular Hemoglobin 33 pg (25-35) Mean Corpuscular Hemoglobin Concent 34 g/dL (31-37) Red Cell Distribution Width 13.1 % (11.5-14.5) Platelet Count 273 x10^3/uL (140-400) Neutrophils (%) (Auto) 44 % (31-73) Lymphocytes (%) (Auto) 44 % (24-48) Monocytes (%) (Auto) 11 % (0-9) Eosinophils (%) (Auto) 1 % (0-3) Basophils (%) (Auto) 1 % (0-3) Neutrophils # (Auto) 3.7 x10^3uL (1.8-7.7) Lymphocytes # (Auto) 3.7 x10^3/uL (1.0-4.8) Monocytes # (Auto) 0.9 x10^3/uL (0.0-1.1) Eosinophils # (Auto) 0.1 x10^3/uL (0.0-0.7) Basophils # (Auto) 0.1 x10^3/uL (0.0-0.2) Sodium Level 135 mmol/L (136-145) Potassium Level 4.2 mmol/L (3.5-5.1) Chloride Level 99 mmol/L (98-107) Carbon Dioxide Level 28 mmol/L (21-32) Anion Gap 8 (6-14) Blood Urea Nitrogen 18 mg/dL (7-20) Creatinine 0.9 mg/dL (0.6-1.0) Estimated GFR (Cockcroft-Gault) 59.1 BUN/Creatinine Ratio 20 (6-20) Glucose Level 162 mg/dL (70-99) Calcium Level 9.4 mg/dL (8.5-10.1) Total Bilirubin 0.3 mg/dL (0.2-1.0) Aspartate Amino Transf (AST/SGOT) 19 U/L (15-37) Alanine Aminotransferase (ALT/SGPT) 23 U/L (14-59) Alkaline Phosphatase 77 U/L (46-116) Troponin I Quantitative < 0.017 ng/mL (0.000-0.055) Total Protein 6.9 g/dL (6.4-8.2) Albumin 3.8 g/dL (3.4-5.0) Albumin/Globulin Ratio 1.2 (1.0-1.7) Urine Collection Type Unknown Urine Color Yellow Urine Clarity Clear Urine pH 6.0 Urine Specific [place] 1.015 Urine Protein Negative mg/dL (NEG-TRACE) Urine Glucose (UA) Negative mg/dL (NEG) Urine Ketones (Stick) Negative mg/dL (NEG) Urine Blood Negative (NEG) Urine Nitrite Negative (NEG) Urine Bilirubin Negative (NEG) Urine Urobilinogen Dipstick 0.2 mg/dL (0.2 mg/dL) Urine Leukocyte Esterase Moderate (NEG) Urine RBC 0 /HPF (0-2) Urine WBC 5-10 /HPF (0-4) Urine Squamous Epithelial Cells Many /LPF Urine Renal Epithelial Cells Few /LPF Urine Bacteria Few /HPF (0-FEW) Urine Mucus Marked /LPF Brief Hospital Course Ms. Martinez is a pleasant 88 year old female lives alone at home, son concern, had a mechanical fall today, no presyncopal symptoms. Sustained a pretty significant head laceration needed 18 daren in the emergency room and had some ear hematoma that was drained at the emergency room. CT head and cervical spine negative for any fracture just maybe some DJD. Blood pressure on the high side which was appropriately addressed. DNR. No Overnight events. Patient looking fairly well, complains of some headache. Was OBS admit and wants to go home, She will see ENT MD on saturday to make sure ear hematoma will not re accumulate. After final PT evaluation write up, looks like she wishes for home health services on d/c Closed head injury Mechanical fall at home Scalp laceration, status post 18 daren at the emergency room ear hematoma status post evacuation at the ER and posterior otic sutures Geriatric DNR Fall risk CT head 1. No acute intracranial bleed. 2. Moderate White matter changes likely secondary to chronic microvascular ischemic disease. 3. Left anterior high convexity and lateral scalp soft tissue laceration with small hematoma without underlying calvarial fractures. Plan: Observation status Blood pressure meds have been reconciled and when necessary. Hold amlodipine and BRUNO, BB only today Pain control To see an ENT doctor Saturday to make sure air hematoma does not resolve [place] can be removed in about 10-14 days Discharge Information Condition at Discharge: Improved Follow Up: Weeks (2) Disposition/Orders: D/C to Home w/ HH Scheduled Amlodipine Besylate (Amlodipine Besylate) 5 Mg Tablet, 5 MG PO DAILY for HTN, ( Reported) Entered as Reported by: EPIFANIO COOPER on 05/10/181818 Last Taken: UNKNOWN on Unknown Date & Time Last Action: Continued on 1858 by ERIK GLYNN Anastrozole (Anastrozole) 1 Mg Tablet, 1 TAB PO DAILY for DR. LANGFORD, #30 Ref 5 ( Reported) Entered as Reported by: EPIFANIO COOPER on 05/10/181818 Last Taken: UNKNOWN on Unknown Date & Time Last Action: Converted on 1858 by ERIK GLYNN Clindamycin Hcl (Clindamycin Hcl) 300 Mg Capsule, 1 CAP PO TID for Scalp laceration for 7 Days, #21 Prescribed by: MANISH GARCIA MD on 05/11/18 1403 Irbesartan (Irbesartan) 300 Mg Tablet, 1 TAB PO DAILY for UNKNOWN, #30 Ref 5 ( Reported) Entered as Reported by: EPIFANIO COOPER on 05/10/181818 Last Taken: UNKNOWN on Unknown Date & Time Last Action: Converted on 1858 by ERIK GLYNN Metoprolol Succinate (Toprol Xl) 50 Mg Tab.er.24h, 50 MG PO DAILY for FOR HYPERTENSION, #30 Ref 0 (Reported) Entered as Reported by: EPIFANIO COOPER on 05/10/181818 Last Taken: UNKNOWN on Unknown Date & Time Last Action: Converted on 1858 by ERIK GLYNN Omeprazole (Omeprazole) 20 Mg Capsule.dr, 1 CAP PO DAILY for ACID REFLUX, #30 Ref 5 (Reported) Entered as Reported by: EPIFANIO COOPER on 05/10/181818 Last Taken: UNKNOWN on Unknown Date & Time Last Action: Converted on 1858 by ERIK GLYNN Pravastatin Sodium (Pravastatin Sodium) 40 Mg Tablet, 1 TAB PO DAILY for HIGH CHOL, #90 Ref 1 (Reported) Entered as Reported by: EPIFANIO COOPER on 05/10/181818 Last Taken: UNKNOWN on Unknown Date & Time Last Action: Converted on 1858 by ERIK GLYNN Scheduled PRN Tramadol Hcl (Tramadol Hcl) 50 Mg Tablet, 50 MG PO Q6HRS PRN for PAIN for 6 Days , #24 Prescribed by: MANISH GARCIA MD on 05/11/18 1403 MANISH GARCIA MD May 11, 2018 14:03
--- NOTE | 2018-05-11 14:05 | DISCH ---
DISCHARGE WITH HOME HEALTH DISCHARGE INFORMATION: Discharge Date: May 11, 2018 Final Diagnosis: Scalp laceration, fall at home Condition on Discharge: Stable CODE STATUS: Code Status: DNR/DNI HOME HEALTH: Face to Face: I certify this patient is under my care and that I, or a nurse practitioner or physician's inventory assistant working with me, had a face to face encounter that meets the physician face to face encounter requirements with this patient on 05/11/18. Medical Complications: DJD, Falls Long Term For: Assess & Educate Safety, Wound Care Physical Therapy For: Evalulation/Treatment Occupational Therapy For: Evaluation/Treatment Home Health Aide For: Self-care Pt Meets Homebound Status: Unsteady balance w/ amb, POST DISCHARGE ORDERS: Activity Instructions for Disc: No restrictions Weight Bearing Status after Di: No restrictions DIET AFTER DISCHARGE: Regular Wound/Incision Care: Ice to area for comfort, Reinforce dressing PRN CHECKS AFTER DISCHARGE: Checks after discharge: Check blood press - daily, Check your Temp as needed, Weigh Yourself Daily FOLLOW-UP: Follow up with: ENT, Suture and staple removal in 10-14 days TREATMENT/EQUIPMENT ORDERS: Adaptive Equipment Issued: Bath Bench, Front wheeled walker CERTIFICATION STATEMENT: Certification Statement: Certification Statement: Based on the above finding, I certify that this patient is confined to the home and needs intermittent care home care, physical therapy and/or speech therapy, or continues to need occupational therapy.~ This patient is under my care, and I have initiated the establishment of the plan of care.~ This patient will be followed by myself or a community physician who will periodically review the plan of care. Home Meds Active Scripts Clindamycin Hcl (CLINDAMYCIN HCL) 300 Mg Capsule, 1 CAP PO TID for Scalp laceration for 7 Days, #21 CAP Prov:MANISH GARCIA MD 05/11/18 Tramadol Hcl (TRAMADOL HCL) 50 Mg Tablet, 50 MG PO Q6HRS PRN for PAIN for 6 Days , #24 TAB Prov:MANISH GARCIA MD 05/11/18 Reported Medications Amlodipine Besylate (AMLODIPINE BESYLATE) 5 Mg Tablet, 5 MG PO DAILY for HTN, TAB 05/10/18 Irbesartan (IRBESARTAN) 300 Mg Tablet, 1 TAB PO DAILY for UNKNOWN, #30 TAB 5 Refills 05/10/18 Metoprolol Succinate (TOPROL XL) 50 Mg Tab.er.24h, 50 MG PO DAILY for FOR HYPERTENSION, #30 TAB 0 Refills 05/10/18 Pravastatin Sodium (PRAVASTATIN SODIUM) 40 Mg Tablet, 1 TAB PO DAILY for HIGH CHOL, #90 TAB 1 Refill 05/10/18 Omeprazole (OMEPRAZOLE) 20 Mg Capsule., 1 CAP PO DAILY for ACID REFLUX, #30 CAP 5 Refills 05/10/18 Anastrozole (ANASTROZOLE) 1 Mg Tablet, 1 TAB PO DAILY for DR. LANGFORD, #30 TAB 5 Refills 05/10/18 MANISH GARCIA MD May 11, 2018 14:05
[2018-05-11 15:00] VITALS: BP 153/59
[2018-05-11] MEDS ORDERED: LACTOBACILLUS RHAMNOSUS GG 1 CAPSULE. PO SCH (21:00)
== END 2018-05-11 15:15 | disposition home health service (06) ==
LOC: ER 14:56 → 4 NORTH 17:10
PROVIDERS: ADMIT Internal Medicine; ATTEND Internal Medicine
DX: S01.01XA Laceration without foreign body of scalp, initial encounter (principal); S00.439A Contusion of unspecified ear, initial encounter; K21.9 Gastro-esophageal reflux disease without esophagitis; I10 Essential (primary) hypertension; E78.00 Pure hypercholesterolemia, unspecified; W18.30XA Fall on same level, unspecified, initial encounter; Y92.009 Unspecified place in unspecified non-institutional (private) residence as the place of occurrence of the external cause; Z66 Do not resuscitate; Z82.49 Family history of ischemic heart disease and other diseases of the circulatory system; Z90.710 Acquired absence of both cervix and uterus; Z91.81 History of falling
CPT/HCPCS: 36415; 70450; 72125; 80053; 81001; 84484; 85025; 87086; 93005; 96365; 96366; 96375; 97116; 97162; 97166; 97535; 99284; G0378; G8978; G8979; G8987; G8988; J2405; J3490; J7040; G0379

== ENCOUNTER → 2018-09-17 | Outpatient (CLI) | payer MEDICARE, BC ==
[~2018-09-17] MED LIST: AMLO5TAB10 PO; ANAS1TAB PO; CLIN300C8 PO; IRBE300T3 PO; METO-269 PO; OMEP20CA10 PO; PRAV40TA2 PO; TRAM50TA PO
--- NOTE | 2018-09-17 16:31 | KCIC ---
CHEST PA LATERAL History: Chronic shortness of breath.. No comparison The cardiac silhouette is not enlarged. No pneumothorax, pleural effusion or infiltrate. Aorta mildly calcified and tortuous. Regional skeleton appears grossly intact. IMPRESSION: No acute consolidating infiltrate. Electronically signed by: Jonathan Gallardo MD (09/17/2018 4:28 PM) [facility]
--- NOTE | 2018-09-17 17:44 | KCIC ---
Indication: Postmenopausal screening for osteoporosis. COMPARISON: None available.. Bone Density: -BMD: (g/cm2) - AP Spine Total (L1-L4).......... 1.094. - Total left Hip................. 0.730. T-Score: - AP Spine Total (L1-L4)......... 0.4. - Total left Hip................. -1.7. World Health Organization criteria for BMD interpretation classify patients as Normal (T-score at or above -1.0), Osteopenic (T-score between -1.0 and -2.5), or Osteoporotic (T-score at or below -2.5). Impression: 1. AP Spine Total L1-L4--- normal. 2. Total left Hip--- osteopenia. Electronically signed by: Franco Hawk MD (09/17/2018 5:42 PM) [id number]
== END | disposition home or self-care (01) ==
LOC: KCIC DEXA 12:16
PROVIDERS: ATTEND Family Medicine
DX: Z13.820 Encounter for screening for osteoporosis (principal); C50.919 Malignant neoplasm of unspecified site of unspecified female breast; R06.02 Shortness of breath; I70.0 Atherosclerosis of aorta; N95.9 Unspecified menopausal and perimenopausal disorder
CPT/HCPCS: 71046; 77080

== ENCOUNTER → 2018-10-22 | Outpatient (CLI) | payer MEDICARE, BC ==
--- NOTE | 2018-10-22 14:17 | KCIC ---
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 Patient has declined surgery, treated with Arimidex. Comparison: Bilateral mammogram, 09/02/2017 and dating back to 2016. Technique: Routine MLO and CC tomosynthesis (3D) digital views performed. Spot compression left MLO digital view. Images reviewed by the radiologist at dedicated workstation. Findings: Breast Tissue Density C : The breasts are heterogeneously dense, which may obscure small masses. There is architectural distortion just posterior and medial to the biopsy clip in the upper outer right breast at mid depth in location of the patient's diagnosed breast cancer. However there is no evidence of progression such as recurrence of mass. Bilateral arterial and nonarterial calcifications redemonstrated. There are no dominant masses or suspicious microcalcifications. Possible architectural distortion in the upper left breast at anterior depth on the MLO view does not persist with spot compression views. IMPRESSION: Stable architectural distortion in the upper outer right breast at biopsy clip. No mammographic evidence of progression. Consider discussion of whether continued mammographic surveillance is beneficial to the patient. BI-RADS Category 6, known malignancy. The images were reviewed with computer-aided detection. Patient information is entered into the reminder system with a target due date for the next screening mammogram. Mammography is the most sensitive method for finding small breast cancers, but it does not detect them all and is not a substitute for careful clinical examination. A negative mammogram does not negate a clinically suspicious finding and should not result in delay in biopsying a clinically suspicious abnormality. "Our facility is accredited by the [employer] Mammography Program." Electronically signed by: Braulio Doyle MD (10/22/2018 2:14 PM) [id number]
== END | disposition home or self-care (01) ==
LOC: KCIC MAMMO 12:48
PROVIDERS: ATTEND Family Medicine
DX: C50.411 Malignant neoplasm of upper-outer quadrant of right female breast (principal); N64.89 Other specified disorders of breast
CPT/HCPCS: 77066; G0279; 77062

== ENCOUNTER → 2018-12-02 | Outpatient (CLI) | payer MEDICARE, BC ==
--- NOTE | 2018-12-02 14:22 | KCIC ---
THORACIC SPINE 3V History: Thoracic pain, twisting injury, pain for about 2 months Comparison: Lateral view of the chest September 17, 2018 Findings: 3 views thoracic spine are submitted. There is new anterior compression deformity of what is probably T9. There is mild spondylosis of inferior thoracic levels, also degree of degenerative disc disease. There is of atherosclerotic calcification greater near aortic arch. Impression: 1. There is anterior compression deformity of what is likely T9 vertebral body, new since chest radiograph September 17, 2018. Electronically signed by: Nghia Camejo MD (12/02/2018 2:19 PM) [id number]
== END | disposition home or self-care (01) ==
LOC: KCIC 12:27
PROVIDERS: ATTEND Nurse Practitioner Family
DX: M51.34 Other intervertebral disc degeneration, thoracic region (principal); M47.814 Spondylosis without myelopathy or radiculopathy, thoracic region; M43.8X4 Other specified deforming dorsopathies, thoracic region; I70.0 Atherosclerosis of aorta
CPT/HCPCS: 72072

== ENCOUNTER → 2019-06-02 | Outpatient (CLI) | payer MEDICARE, BC ==
[~2019-06-02] MED LIST changes: -OMEP20CA10 PO; +OMEP20CA16 PO
--- NOTE | 2019-06-02 17:01 | KCIC ---
EXAM: Right ankle, 3 views. HISTORY: Pain. COMPARISON: None. FINDINGS: 3 views of the right ankle are obtained. There is no acute fracture, dislocation or subluxation. There is lateral predominant ankle soft tissue swelling. There is no osteochondral lesion. There is a suspected bone island within the talus. IMPRESSION: 1. Lateral ankle soft tissue swelling. 2. No acute osseous finding. Electronically signed by: Jennifer Haro MD (06/02/2019 4:58 PM) [facility]
== END | disposition home or self-care (01) ==
LOC: KCIC 14:22
PROVIDERS: ATTEND Nurse Practitioner Family
DX: M25.471 Effusion, right ankle (principal); M25.571 Pain in right ankle and joints of right foot
CPT/HCPCS: 73610

== ENCOUNTER → 2020-01-26 | Outpatient (CLI) | payer MEDICARE, BC ==
[2019-11-13 15:45] VITALS: BP 140/74
[~2020-01-26] MED LIST changes: +IRBE300T23 PO; -IRBE300T3 PO
--- NOTE | 2020-01-26 14:34 | KCIC ---
BILATERAL 3-D DIAGNOSTIC MAMMOGRAPHY History: 89-year-old female with personal history of right invasive ductal carcinoma diagnosed in 2016. Patient has declined surgery, treated with Arimidex. Comparison: Bilateral mammogram 10/22/2018 and back to 2017. Technique: Routine MLO and CC tomosynthesis (3D) digital views performed. Images reviewed by the radiologist at dedicated workstation. Findings: Breast Tissue Density C : The breasts are heterogeneously dense, which may obscure small masses. Stable biopsy clip in the right breast 10:00 B position, site of patient's known cancer. No surrounding mass is identified. Arterial and nonarterial calcifications are redemonstrated bilaterally. There are no dominant masses, suspicious microcalcifications or new architectural distortion. IMPRESSION: No mammographic evidence of progression of right breast cancer. No suspicious new findings. Recommend routine follow-up. BI-RADS Category 6, known malignancy. The images were reviewed with computer-aided detection. Patient information is entered into the reminder system with a target due date for the next screening mammogram. Mammography is the most sensitive method for finding small breast cancers, but it does not detect them all and is not a substitute for careful clinical examination. A negative mammogram does not negate a clinically suspicious finding and should not result in delay in biopsying a clinically suspicious abnormality. "Our facility is accredited by the [employer] Mammography Program." Electronically signed by: Braulio Doyle MD (01/26/2020 2:31 PM) [id number]
== END ==
LOC: KCIC MAMMO 12:44
PROVIDERS: ATTEND Nurse Practitioner Family
DX: R92.2 Inconclusive mammogram (principal); Z85.3 Personal history of malignant neoplasm of breast
CPT/HCPCS: 77066; G0279; 77062